=== PATIENT | female | born 1975 | race Two or more races ===

== ENCOUNTER 2024-07-14 08:30 | Outpatient (RCR) | payer MEDICAID, SELFPAY ==
--- NOTE | 2024-06-22 09:45 | PTNOTE_ITS ---
PT OP Initial Eval Patient Information Outpatient Physical Therapy Treatment Date: 06/22/24 Visit Reasons: left knee surgery Medical Diagnosis: M23.92 Treatment Dx #1: L knee pain Start of Care: 06/22/24 Date of Onset: 05/15/24 Smoking Status Smoking Status: Never smoker Initial Assessment Subjective: Pt is 48 yr old female s/p L knee partial medial meniscectomy, partial lateral meniscectomy, chondroplasty, partial synovectomy including excision plica. Pt reports stiffness, pain with bending and prolonged walking. The knee feels like it swollen. PMH: Kidney removal Pt goal: to bend the knee and walk without pain Objective: L knee AROM: ? Flexion: 80 deg ? Extension: full ? SLR: 25 deg ? Strength: L quads 4-/5 limited by patella compression pain, hamstrings 4/5 TTP: high of L patella Stairs: limited by pain Squats: limited by pain ? Assessment: Pt presentation consistent with post op L knee A/S with decreased ROM, ? strength and WB tolerance. Pt has patella compression se nsitivity, and high TTP. Pt has ? pain at first resistance into knee flexion that limits end-range ? tolerance and PROM. Pt can SLR slowly limited by patella pain. Pt requires skilled therapy in order to improve strength and ROM and has good rehab potential with attainable functional improvement. Eval followed by HEP with ?materials. Short Term and Senior Care Goals 1. Independent with HEP ? 2. Improved knee flexion ROM to 115 deg ? 3. Improved quad and hamstring strength to 4+/5 ? 4. Decreased TTP of patella from high to min Treatment Plan 1. Manual therapy ? 2. Therex ? 3. Modalities as indicated, moist heat, ice, TENS Frequency and Duration: 1-2x a week for 16 visits Certification Dates: 06/22/24 to 09/20/24 Procedure Charges OP PT Eval Mod Complex 30 minutes: Yes
--- NOTE | 2024-07-01 09:26 | PT.ODAYNRPT ---
PT Outpatient Daily Note OP Daily Note Outpatient Physical Therapy Treatment Date: 07/01/24 Visit Reasons: left knee surgery Subjective: Continued tightness and swelling of L knee Objective: See F/S for therex MT: PPM into flexion x5' Assessment: Good strength with therex in standing. Knee flexion ROM limited to about 90 deg with overpressure Plan: Improve knee flexion ROM on L Length of Time (minutes) of Treatment: 30 Minutes Procedure Charges Therapeutic Exercise 30 minutes: Yes
--- NOTE | 2024-07-03 14:09 | PT.ODAYNRPT ---
PT Outpatient Daily Note OP Daily Note Outpatient Physical Therapy Treatment Date: 07/03/24 Visit Reasons: left knee surgery Subjective: Pt c/o moderate knee pain, mentioned she was really hurting after last session and knee is sore. Objective: Please see flow sheet for ther ex list. Assessment: Regressed interventions to accommodate reported pain. Plan: Continue with pOC. Length of Time (minutes) of Treatment: 30 Minutes Procedure Charges Therapeutic Exercise 30 minutes: Yes
--- NOTE | 2024-07-07 08:46 | PT.ODAYNRPT ---
PT Outpatient Daily Note OP Daily Note Outpatient Physical Therapy Treatment Date: 07/07/24 Visit Reasons: left knee surgery Subjective: Pt reports L knee continues to be painful, swollen and tender. Pt mentioned about a week ago she was on a step stool ladder in her home when she jumped off of it, it was painful to jump off. Pt shared swelling and pain is worst in the evening. Pt has follow up with surgeon tomorrow. Objective: Please see flow sheet for ther ex list. Assessment: Pt c/o 8/10 pain with activity delaying progression of intervention. Plan: Assess response to treatment. Length of Time (minutes) of Treatment: 30 Minutes Procedure Charges Therapeutic Exercise 30 minutes: Yes
--- NOTE | 2024-07-14 09:46 | PT.ODAYNRPT ---
PT Outpatient Daily Note OP Daily Note Outpatient Physical Therapy Treatment Date: 07/14/24 Visit Reasons: left knee surgery Subjective: Pt reports L knee still swells and is stiff and painful. Pt mentiond she had follow up with surgeon last week and he requested additional PT. Objective: Please see flow sheet for ther ex list. Assessment: Pt presents in clinic with moderate knee swelling resulting in pain with activities delaying progress in clinic. Plan: Continue with POC. Length of Time (minutes) of Treatment: 30 Minutes Procedure Charges Therapeutic Exercise 30 minutes: Yes
== END 2024-07-18 23:59 | disposition home or self-care (01) ==
LOC: CPTX 08:30
PROVIDERS: PCP Orthopaedic Surgery; Referring Provider Orthopaedic Surgery; Visit Provider Orthopaedic Surgery
DX: M25.562 Pain in left knee (principal); M25.662 Stiffness of left knee, not elsewhere classified; Z98.890 Other specified postprocedural states
CPT/HCPCS: 97110; 97162

== ENCOUNTER 2024-08-07 13:30 | Outpatient (RCR) | payer MEDICAID, SELFPAY ==
--- NOTE | 2024-07-20 09:15 | PT.ODAYNRPT ---
PT Outpatient Daily Note OP Daily Note Outpatient Physical Therapy Treatment Date: 07/20/24 Visit Reasons: left knee surgery Subjective: pt. states L knee flexion motion has been limited due to knee stiffness, has difficult getting knee to bend continues to limp Objective: pre - PROM knee flexion 84 degrees with knee extension -4 PROM L knee flexion 110 degrees Assessment: pt. improved PROM by 26 degrees knee flexion post manual therapy Plan: continue per POC Length of Time (minutes) of Treatment: 30 Minutes Procedure Charges Therapeutic Exercise 30 minutes: Yes
--- NOTE | 2024-07-23 08:39 | PT.ODAYNRPT ---
PT Outpatient Daily Note OP Daily Note Outpatient Physical Therapy Treatment Date: 07/23/24 Visit Reasons: left knee surgery Subjective: Pt. states L knee flexion motion has been limited due to knee stiffness, has difficult getting knee to bend continues to limp Objective: MT: PPM into knee flexion x5' PROM L knee flexion 105 degrees Assessment: Good improvement into knee flexion post manual therapy Plan: continue per POC Length of Time (minutes) of Treatment: 30 Minutes Procedure Charges Therapeutic Exercise 30 minutes: Yes
--- NOTE | 2024-07-28 15:10 | PT.ODAYNRPT ---
PT Outpatient Daily Note OP Daily Note Outpatient Physical Therapy Treatment Date: 07/28/24 Visit Reasons: left knee surgery Subjective: Pt. states L knee flexion motion has been limited due to knee stiffness, has difficult getting knee to bend continues to limp Objective: MT: PPM into knee flexion x5' PROM L knee flexion 113 degrees Assessment: Good improvement into knee flexion post manual therapy Plan: continue per POC Length of Time (minutes) of Treatment: 30 Minutes Procedure Charges Therapeutic Exercise 30 minutes: Yes
--- NOTE | 2024-07-30 14:57 | PT.ODAYNRPT ---
PT Outpatient Daily Note OP Daily Note Outpatient Physical Therapy Treatment Date: 07/30/24 Visit Reasons: left knee surgery Subjective: pt. reports swelling in L knee due to overexerting knee flexion the previous day Objective: see flowsheet for ther-ex L Knee AROM: knee flexion 96 degrees passive physiological motion 105 degrees Assessment: passive physiological motion of L knee flexion EOB increased by 9 degrees Plan: continue PT per POC Length of Time (minutes) of Treatment: 30 Minutes Procedure Charges Therapeutic Exercise 30 minutes: Yes
--- NOTE | 2024-08-04 10:32 | PTNOTE_ITS ---
PT Outpatient Daily Note OP Daily Note Outpatient Physical Therapy Treatment Date: 08/04/24 Visit Reasons: left knee surgery Subjective: Pt reports L knee was really hurting and sore over the weekend, pt had a alliance party she has to plan and set up for. Objective: Please see flow sheet for ther ex list. Assessment: Pt demonstrates poor forward lunge due to pain with bending L knee near ~90 deg. Plan: Progress functional strengthening as tolerated following post op protocol. Length of Time (minutes) of Treatment: 30 Minutes Procedure Charges Therapeutic Exercise 30 minutes: Yes
--- NOTE | 2024-08-07 15:00 | PT.ODAYNRPT ---
PT Outpatient Daily Note OP Daily Note Outpatient Physical Therapy Treatment Date: 08/07/24 Visit Reasons: left knee surgery Subjective: Pt reports knee is doing ok these past few days has been staying off of it. Objective: Please see flow sheet for ther ex list. Assessment: Pt instructed on step up but c/o pain near end of exercise. Plan: Continue with POC. Length of Time (minutes) of Treatment: 30 Minutes Procedure Charges Therapeutic Exercise 30 minutes: Yes
== END 2024-08-18 23:59 | disposition home or self-care (01) ==
LOC: CPTX 13:30
PROVIDERS: PCP Orthopaedic Surgery; Referring Provider Orthopaedic Surgery; Visit Provider Orthopaedic Surgery
DX: M25.562 Pain in left knee (principal); M25.662 Stiffness of left knee, not elsewhere classified; M23.92 Unspecified internal derangement of left knee; Z98.890 Other specified postprocedural states
CPT/HCPCS: 97110

== ENCOUNTER 2024-09-14 08:00 | Outpatient (RCR) | payer MEDICAID, SELFPAY ==
--- NOTE | 2024-08-24 08:47 | PT.ODS1RPT ---
PT OP Progress/Discharge Note Date of Service: 08/24/24 Progress Note/DC Note Progress Note/Discharge Note: Progress Note Patient Information Visit Reasons: LEFT KNEE SURGERY Service Continue Service or Discharge: Continue Service Status Subjective: A little less pain in the L knee but it stiffens and swells with activity. Wants to continue PT Objective: See F/S for therex L knee AROM: Flexion: 90 deg Extension: full Strength: Quads: 4/5 HS: 4-/5 Assessment: Pt has attended 12 visits with slow progress with therapy goals due to continued pain and stiffness of L knee. Knee flexion PROM usually improves with manual therapy to about 105 deg but is lacking to meet the 120 deg goal. And there is poor carryover of ROM gains visit to visit. Pt would benefit from continued therapy to meet ROM and strength goals. Plan: Request additional visits x8 Procedure Charges Therapeutic Exercise 30 minutes: Yes
--- NOTE | 2024-09-14 08:44 | PT.ODAYNRPT ---
PT Outpatient Daily Note OP Daily Note Outpatient Physical Therapy Treatment Date: 09/14/24 Visit Reasons: LEFT KNEE SURGERY Subjective: The knee hurts to bend. Objective: See F/S for therex MT: PROM into flexion x7' Assessment: Improved PROM into knee flexion to 110 degrees with overpressure today Plan: Improve knee flexion ROM Length of Time (minutes) of Treatment: 30 Minutes Procedure Charges Therapeutic Exercise 30 minutes: Yes
== END 2024-09-18 23:59 | disposition home or self-care (01) ==
LOC: CPTX 08:00
PROVIDERS: PCP Orthopaedic Surgery; Referring Provider Orthopaedic Surgery; Visit Provider Orthopaedic Surgery
DX: M25.562 Pain in left knee (principal); M25.662 Stiffness of left knee, not elsewhere classified; M23.92 Unspecified internal derangement of left knee; Z98.890 Other specified postprocedural states
CPT/HCPCS: 97110

== ENCOUNTER 2024-10-14 08:00 | Outpatient (RCR) | payer MEDICAID, SELFPAY ==
--- NOTE | 2024-09-21 09:03 | PT.ODAYNRPT ---
PT Outpatient Daily Note OP Daily Note Outpatient Physical Therapy Treatment Date: 09/21/24 Visit Reasons: Left knee surgery Subjective: The knee hurts to bend. Objective: See F/S for therex Assessment: Low tissue irritability with therex Plan: Improve knee flexion ROM Length of Time (minutes) of Treatment: 30 Minutes Procedure Charges Therapeutic Exercise 30 minutes: Yes
--- NOTE | 2024-09-23 08:17 | PT.ODAYNRPT ---
PT Outpatient Daily Note OP Daily Note Outpatient Physical Therapy Treatment Date: 09/23/24 Visit Reasons: Left knee surgery Subjective: The knee is feeling good today, not hurting Objective: See F/S for therex PROM: flexion 115 deg with overpressure Assessment: Low tissue irritability with therex. Pt encouraged to walk for exercise and start with 10 minutes. Plan: Reassess Length of Time (minutes) of Treatment: 30 Minutes Procedure Charges Therapeutic Exercise 30 minutes: Yes
--- NOTE | 2024-09-30 08:42 | PT.ODAYNRPT ---
PT Outpatient Daily Note OP Daily Note Outpatient Physical Therapy Treatment Date: 09/30/24 Visit Reasons: Left knee surgery Subjective: The knee is feeling good today, not hurting but it swells with exercise Objective: See F/S for therex PROM: flexion 115 deg with overpressure Assessment: Low tissue irritability with therex. Pt encouraged to walk for exercise and start with 10 minutes. Plan: Continue per POC to see if edema reduces Length of Time (minutes) of Treatment: 30 Minutes Procedure Charges Therapeutic Exercise 30 minutes: Yes
--- NOTE | 2024-10-07 08:43 | PT.ODAYNRPT ---
PT Outpatient Daily Note OP Daily Note Outpatient Physical Therapy Treatment Date: 10/07/24 Visit Reasons: Left knee surgery Subjective: She hasn't been to the gym lately so the knee is not painful except to bend all the way back. Objective: See F/S for therex PROM: flexion 110 deg with overpressure x5 mins Assessment: Low tissue irritability with therex. Pain of medial knee at end range flexion with overpressure Plan: Continue per POC to see if edema reduces Length of Time (minutes) of Treatment: 30 Minutes Procedure Charges Therapeutic Exercise 30 minutes: Yes
--- NOTE | 2024-10-14 11:22 | PT.ODAYNRPT ---
PT Outpatient Daily Note OP Daily Note Outpatient Physical Therapy Treatment Date: 10/14/24 Visit Reasons: Left knee surgery Subjective: She hasn't been to the gym lately so the knee is not painful except to bend all the way back. Objective: See F/S for therex AROM: flexion 105 deg Assessment: Mod/high tissue irritability and TTP of patella borders. Pain of medial knee at end range flexion with overpressure. Limited AROM to about 105 deg. Plan: Continue per POC to see if edema reduces Length of Time (minutes) of Treatment: 30 Minutes Procedure Charges Therapeutic Exercise 30 minutes: Yes
== END 2024-10-16 23:59 | disposition home or self-care (01) ==
LOC: CPTX 08:00
PROVIDERS: PCP Orthopaedic Surgery; Referring Provider Orthopaedic Surgery; Visit Provider Orthopaedic Surgery
DX: M25.562 Pain in left knee (principal); M25.662 Stiffness of left knee, not elsewhere classified; M23.92 Unspecified internal derangement of left knee; Z98.890 Other specified postprocedural states
CPT/HCPCS: 97110

== ENCOUNTER 2024-11-11 08:00 | Outpatient (RCR) | payer MEDICAID, SELFPAY ==
--- NOTE | 2024-10-21 08:51 | PT.ODAYNRPT ---
PT Outpatient Daily Note OP Daily Note Outpatient Physical Therapy Treatment Date: 10/21/24 Visit Reasons: LEFT KNEE SURGERY Subjective: She hasn't been to the gym lately so the knee is not painful except to bend all the way back. She c/o continued swelling. Objective: See F/S for therex AROM: flexion 105 deg Assessment: Mod/high tissue irritability and TTP of patella borders. Pain of medial knee at end range flexion with overpressure. Limited AROM to about 105 deg. Plan: Continue per POC to see if edema reduces Length of Time (minutes) of Treatment: 30 Minutes Procedure Charges Therapeutic Exercise 30 minutes: Yes
--- NOTE | 2024-10-28 08:11 | PT.ODAYNRPT ---
PT Outpatient Daily Note OP Daily Note Outpatient Physical Therapy Treatment Date: 10/28/24 Visit Reasons: LEFT KNEE SURGERY Subjective: She hasn't been to the gym lately so the knee is not painful except to bend all the way back and go down stairs. She c/o continued sensitivity on the front of the knee. Objective: See F/S for therex MT: STM anterior knee x5' Assessment: Mod/high tissue irritability and sensitivity of anterior knee around incision scars. Pt encouraged to massage at home to desensitize. Plan: Continue per POC to see if sensitivity reduces Length of Time (minutes) of Treatment: 30 Minutes Procedure Charges Therapeutic Exercise 30 minutes: Yes
--- NOTE | 2024-11-04 08:05 | PT.ODAYNRPT ---
PT Outpatient Daily Note OP Daily Note Outpatient Physical Therapy Treatment Date: 11/04/24 Visit Reasons: LEFT KNEE SURGERY Subjective: She hasn't been to the gym lately so the knee is not painful except to bend all the way back and go down stairs. She c/o continued sensitivity on the front of the knee. Objective: See F/S for therex MT: STM anterior knee x5' Assessment: Mod/high tissue irritability and sensitivity of anterior knee around incision scars. Pt encouraged to massage at home to desensitize. Plan: Continue per POC to see if sensitivity reduces Length of Time (minutes) of Treatment: 30 Minutes Procedure Charges Therapeutic Exercise 30 minutes: Yes
--- NOTE | 2024-11-11 08:28 | PT.ODAYNRPT ---
PT Outpatient Daily Note OP Daily Note Outpatient Physical Therapy Treatment Date: 11/11/24 Visit Reasons: LEFT KNEE SURGERY Subjective: She hasn't been to the gym lately so the knee is not painful except to bend all the way back and go down stairs. She c/o continued sensitivity on the front of the knee. Objective: See F/S for therex Assessment: Mod/high tissue irritability and sensitivity of anterior knee around incision scars. Pt encouraged to massage at home to desensitize. Plan: Continue per POC to see if sensitivity reduces Length of Time (minutes) of Treatment: 30 Minutes Procedure Charges Therapeutic Exercise 30 minutes: Yes
== END 2024-11-16 23:59 | disposition home or self-care (01) ==
LOC: CPTX 08:00
PROVIDERS: PCP Orthopaedic Surgery; Referring Provider Orthopaedic Surgery; Visit Provider Orthopaedic Surgery
DX: M25.562 Pain in left knee (principal); M25.662 Stiffness of left knee, not elsewhere classified; M23.92 Unspecified internal derangement of left knee; Z98.890 Other specified postprocedural states
CPT/HCPCS: 97110

== ENCOUNTER 2024-12-01 08:30 | Outpatient (RCR) | payer MEDICAID, SELFPAY ==
--- NOTE | 2024-11-24 08:52 | PT.ODAYNRPT ---
PT Outpatient Daily Note OP Daily Note Outpatient Physical Therapy Treatment Date: 11/24/24 Visit Reasons: LEFT KNEE SURGERY Subjective: Pt reports L knee continues to be painful and to be honest feels like it is getting worse. Pt c/o pain and swelling that worsens with prolonged standing and walking. Objective: Please see flow sheet for ther ex list. Assessment: Pt performs interventions with pain, pt will be having imaging done due to poor progress. Plan: Continue with POC. Length of Time (minutes) of Treatment: 30 Minutes Procedure Charges Therapeutic Exercise 30 minutes: Yes
--- NOTE | 2024-12-01 10:58 | PT.ODS1RPT ---
PT OP Progress/Discharge Note Date of Service: 12/01/24 Progress Note/DC Note Progress Note/Discharge Note: DC Note Patient Information Visit Reasons: LEFT KNEE SURGERY Service Continue Service or Discharge: Discharge Discharge Date: 12/01/24 Status Subjective: A little less pain in the L knee but it stiffens and swells with activity. Objective: See F/S for therex L knee AROM: Flexion: 90 deg Extension: full Strength: Quads: 4/5 HS: 4-/5 Assessment: Pt has attended visits with limited progress with therapy goals due to continued pain and stiffness of L knee. Knee flexion PROM usually improves with manual therapy to about 105 deg but is lacking to meet the 120 deg goal. And there is poor carryover of ROM gains visit to visit. Pt is not making progress with goals. Pt may benefit from further diagnostic imaging of L knee. Plan: D/c with HEP Procedure Charges Therapeutic Exercise 30 minutes: Yes
== END 2024-12-16 23:59 | disposition home or self-care (01) ==
LOC: CPTX 08:30
PROVIDERS: PCP Orthopaedic Surgery; Referring Provider Orthopaedic Surgery; Visit Provider Orthopaedic Surgery
DX: M25.562 Pain in left knee (principal); M25.662 Stiffness of left knee, not elsewhere classified; R26.2 Difficulty in walking, not elsewhere classified; Z98.890 Other specified postprocedural states
CPT/HCPCS: 97110

== ENCOUNTER → 2024-12-21 | Outpatient (CLI) | payer MEDICAID, SELFPAY ==
--- NOTE | 2024-12-21 | XR_ITS ---
Examination: AP knees single view TECHNIQUE: Standing AP knees single view Exam date and time: December 21, 2024 0806 hours INDICATIONS: Left knee pain post arthroscopy 6 months ago. FINDINGS: Moderate osteopenia. Moderate narrowing medial joint space No fracture or dislocation IMPRESSION: Moderate narrowing medial joint space
== END | disposition home or self-care (01) ==
LOC: CDIM 07:27
PROVIDERS: PCP Physician Assistant; Referring Provider Orthopaedic Surgery; Visit Provider Orthopaedic Surgery
DX: M25.862 Other specified joint disorders, left knee (principal); Z98.890 Other specified postprocedural states
CPT/HCPCS: 73560

== ENCOUNTER → 2024-12-23 | Outpatient (CLI) | payer MEDICAID, SELFPAY ==
--- NOTE | 2024-12-23 07:15 | XR_ITS ---
Examination: Abdomen sonogram, complete Date and time of exam: December 23, 2024 0729 hours INDICATIONS: Onset right upper abdominal pain today. Technique: Multiple real-time grayscale transabdominal sonographic images of the abdomen have been obtained. Findings: Absent gallbladder Common bile duct 0.7 cm no stones Pancreatic head 2.6 cm Aorta not enlarged. Liver 16 cm fatty infiltration Normal hepatopedal portal venous flow Patent IVC Right kidney 12.7 cm cortex 1.8 cm Multiple calculi, the largest in the lower pole 7 mm Mild right hydronephrosis Absent left kidney Spleen 9.4 cm IMPRESSION: Absent gallbladder No common bile Months Mild hepatomegaly fatty liver Multiple right renal calculi with mild right hydronephrosis, consider CT abdomen pelvis without contrast follow-up to exclude right ureteral calculus
== END | disposition home or self-care (01) ==
PROVIDERS: PCP Physician Assistant; Referring Provider Physician Assistant; Visit Provider Physician Assistant
DX: K76.0 Fatty (change of) liver, not elsewhere classified (principal); N20.0 Calculus of kidney
CPT/HCPCS: 76700

== ENCOUNTER → 2025-03-04 | Outpatient (CLI) | payer MEDICAID, SELFPAY ==
--- NOTE | 2025-03-04 15:30 | XR_ITS ---
Examination: Screening digital mammography, bilateral Computer aided detection 3-D breast Tomosynthesis, bilateral Date and time of exam: March 04, 2025 1546 hours Compared to mammograms dating to November 09, 2021 Indication: Screening Technique: Nonmagnified MLO, CC views of the breasts to been obtained, reconstructed from 3-D Tomosynthesis images. R2 computer aided detection program utilized for evaluation of suspicious masses and/or abnormal calcifications. 3-D Tomosynthesis images obtained. Findings: The breasts are heterogeneously dense, which may obscure small masses Benign calcifications. The breast architecture is nodular although no definite suspicious masses are depicted IMPRESSION: BI-RADS Category 0: Incomplete: Need additional imaging evaluation The breast architecture is heterogeneously dense and nodular Recommend baseline bilateral breast sonography follow-up
== END | disposition home or self-care (01) ==
PROVIDERS: PCP Physician Assistant; Referring Provider Physician Assistant; Visit Provider Physician Assistant
DX: Z12.31 Encounter for screening mammogram for malignant neoplasm of breast (principal); R92.333 Mammographic heterogeneous density, bilateral breasts
CPT/HCPCS: 77063; 77067

== ENCOUNTER → 2025-03-11 | Outpatient (CLI) | payer MEDICAID, SELFPAY ==
--- NOTE | 2025-03-11 15:00 | XR_ITS ---
Examination: CT abdomen and pelvis without contrast. Coronal 3-D reconstructions. Sagittal 2-D reconstructions. Date and time of exam:March 11, 2025 1452 hours Comparison 05/18/2013 INDICATIONS: Upper abdominal pain beginning 2 months ago CTDI: vol (mGy): 12 DLP: (mGycm): 710 Technique: Axial images of the abdomen have been obtained, 3 mm slice thickness Intravenous contrast material has not been administered. Low dose protocols were performed. One or more of the following dose reduction techniques were used; automated exposure control, adjustment of the mA and/or KV according to patient size, use of iterative reconstruction technique. Findings: No focal liver or splenic lesions Absent gallbladder No pancreatic mass Absent left kidney No right renal calculi or ureteral calculi Aorta normal size No bowel obstruction No pericecal inflammatory change No diverticulitis No pelvic mass Urinary bladder intact The osseous structures are intact IMPRESSION: Absent left kidney No right renal hydronephrosis or ureteral calculi No CT findings of appendicitis bowel obstruction or diverticulitis
== END | disposition home or self-care (01) ==
LOC: CCTX 14:37
PROVIDERS: PCP Physician Assistant; Referring Provider Physician Assistant; Visit Provider Physician Assistant
DX: R10.10 Upper abdominal pain, unspecified (principal); Z90.5 Acquired absence of kidney
CPT/HCPCS: 74176

== ENCOUNTER → 2025-04-28 | Outpatient (CLI) | payer MEDICAID, SELFPAY ==
--- NOTE | 2025-04-28 10:00 | XR_ITS ---
Examination: Breast ultrasound complete, bilateral Date and time of exam: April 28, 2025 1010 hours INDICATIONS: Dense breast architecture on mammography, nodular heterogeneous breast architecture mammogram March 04, 2025 Technique: Real-time grayscale ultrasonographic imaging bilateral breasts, including all 4 quadrants as well as nipple retroareolar and axillary regions. Findings: Sonographic images right breast 9:00 cyst 12 x 8 mm No solid nodules Sonographic images left breast No cystic or solid mass IMPRESSION: BI-RADS Category 2: Benign findings
== END | disposition home or self-care (01) ==
PROVIDERS: PCP Physician Assistant; Referring Provider Physician Assistant; Visit Provider Physician Assistant
DX: R92.8 Other abnormal and inconclusive findings on diagnostic imaging of breast (principal)
CPT/HCPCS: 76641